=== PATIENT | female | born 1980 | race Caucasian/White ===

== ENCOUNTER → 2016-04-19 | Outpatient (CLI) | payer OTHER | LOC: FIMAGING 08:51 | PROVIDERS: ATTEND Internal Medicine Hematology & Oncology | DX: Z12.31 Encounter for screening mammogram for malignant neoplasm of breast (principal); Z80.3 Family history of malignant neoplasm of breast | CPT/HCPCS: G0202 ==

== ENCOUNTER → 2016-09-13 | Outpatient (CLI) | payer OTHER ==
[~2016-09-13] MED LIST: GADOBUTROL 10 ML VIAL IVP ONE
== END ==
LOC: FIMAGING 13:55
PROVIDERS: ATTEND Internal Medicine Hematology & Oncology
DX: N63 Unspecified lump in breast (principal); Z15.01 Genetic susceptibility to malignant neoplasm of breast; Z80.3 Family history of malignant neoplasm of breast
CPT/HCPCS: 0159T; A9585; C8908

== ENCOUNTER → 2016-09-16 | Outpatient (CLI) | payer OTHER | LOC: FIMAGING 14:52 | PROVIDERS: ATTEND Internal Medicine Hematology & Oncology | DX: N63 Unspecified lump in breast (principal) ==

== ENCOUNTER 2016-11-03 08:05 | Outpatient (CLI) | payer OTHER ==
[2016-11-03] MEDS ORDERED: MIDAZOLAM 2 MG/2 ML VIAL ONE (08:22)
[2016-11-03] MEDS ORDERED: fentaNYL 100 MCG/2 ML INJ ONE (08:22)
[2016-11-03] MEDS ORDERED: GADOBUTROL 10 ML VIAL IVP ONE (08:26)
[2016-11-03] MEDS ORDERED: LIDOCAINE 1% 5 ML SDV ONE (08:27)
[2016-11-03] MEDS ORDERED: BUPIVACAINE 0.5% 30 ML SDV ONE (08:28)
[2016-11-03] MEDS ORDERED: NA BICARBONATE 50 MEQ/50 ML VIAL ONE (08:28)
== END 2016-11-03 11:00 | disposition home or self-care (01) ==
LOC: FIMAGING 08:05
PROVIDERS: ATTEND Internal Medicine Hematology & Oncology
PROC: 0HBU3ZX Excision of Left Breast, Percutaneous Approach, Diagnostic (ICD-10-PCS; principal; 2016-11-03)
DX: N60.12 Diffuse cystic mastopathy of left breast (principal); Z15.01 Genetic susceptibility to malignant neoplasm of breast
CPT/HCPCS: A9585; G0206; J2250; J3010

== ENCOUNTER 2017-11-24 19:33 | Emergency (ER) | payer OTHER ==
[2017-11-24] MEDS ORDERED: NS 1,000 ML IV ONE (19:56)
[2017-11-24] MEDS ORDERED: DEXAMETHASONE 10 MG/ML VIAL IVP ONE (19:56)
[2017-11-24] MEDS ORDERED: KETOROLAC 30 MG/1 ML SDV IVP ONE (19:56)
[2017-11-24] MEDS ORDERED: METOCLOPRAMIDE 10 MG/2 ML VIAL IVP ONE ×2 (19:57→20:52)
--- NOTE | 2017-11-24 20:05 | EDPHY ---
H & P Stated Complaint: Pt. states WOLF since Monday, vomiting today aprox 1600 Time Seen by Provider: 11/24/17 19:39 HPI/ROS: This patient describes a migraine headache that started early this morning. She had had a headache that started 5 days ago and lasted to 3 days and finally resolved for 24 hr or more prior to this recurrence of migraine. She tried Zomig at 4:00 p.m. But started vomiting thereafter. She now reports bilateral frontal throbbing headache similar to prior migraines, 8/10 intensity. Headache worsens with movement. No other exacerbating factors. She has associated photophobia as well as aura consisting of increased sensitivity to sound in smell. Her father brought her in by private vehicle for evaluation and treatment. ROS: Constitutional: No recent fevers. No fatigue. HEENT: No URI symptoms Pulmonary: No shortness of breath or cough Cardiovascular: No chest pain heart palpitations. No lightheadedness. GI: No abdominal pain. Except for minimal crampy discomfort to 3/10 left lower quadrant that started this afternoon. No hematemesis. Normal bowel movements. : No dysuria or other complaints. Integumentary: No skin rash Neuro: No focal numbness tingling weakness. No confusion. No recent head injuries. 10 point review of symptoms is performed and otherwise negative with exception of pertinent positives and negatives listed in HPI and ROS Source: Patient Exam Limitations: No limitations - Personal History Current Tetanus Diphtheria and Acellular Pertussis (TDAP): Unsure Tetanus Vaccine Date: WITHIN LAST 10 YEARS - Medical/Surgical History Hx Asthma: No Hx Chronic Respiratory Disease: No Hx Diabetes: No Hx Cardiac Disease: No Hx Renal Disease: No Hx Cirrhosis: No Hx Alcoholism: No Hx HIV/AIDS: No Hx Splenectomy or Spleen Trauma: No Other PMH: MEd hx-depression, migraines. Surg-BSO,mastectomy - Family History Significant Family History: No pertinent family hx - Social History Smoking Status: Never smoked Alcohol Use: Occasionally Drug Use: None - Physical Exam Exam: Physical exam: Vital signs are normal General: Patient is in no acute distress. HEENT: Is no external evidence of trauma on exam. Eyes: Pupils are equal and reactive to light. Extraocular motions are intact. Optic fundi: Clear with no papilledema or hemorrhage. Nose atraumatic. Ears: Clear bilaterally with no hemotympanum. Oropharynx: No dental trauma or malocclusion. No intraoral lacerations. Eyes: Pupils are equal and reactive to light. Extraocular motions are intact. Optic fundi: Clear with no papilledema or hemorrhage. Lungs: Clear to auscultation bilaterally Neck: Supple no meningismus. Cardiac: Regular rate and rhythm no murmur gallop or rub. Abdomen: Soft nontender no organomegaly Neuro: GCS of 15. Cranial nerves II through XII intact. Cerebellar exam is normal as judged by symmetric rapid hand movements bilaterally. No pronator drift. No sensory or motor deficits are appreciated. Initial differential diagnosis: Migraine, tension headache, [employer] lesion, intracranial bleed Constitutional: Initial Vital Signs Temperature (C) 36.5 C 11/24/17 19:39 Heart Rate 103 H 11/24/17 19:39 Respiratory Rate 16 11/24/17 19:39 Blood Pressure 134/93 H 11/24/17 19:39 O2 Sat (%) 98 11/24/17 19:39 O2 Delivery Mode Room Air Allergies/Adverse Reactions: No Known Allergies Allergy (Verified 11/24/17 19:38) Home Medications: Medication Instructions Recorded Citalopram [CeleXA 20 MG] 40 mg PO DAILY 05/10/11 Spironolactone 100 mg PO DAILY 10/19/14 Estrogen Patch 11/24/17 Progesterone 11/24/17 ZOLMitriptan [Zomig Zmt] 11/24/17 Medical Decision Making ED Course/Re-evaluation: IV normal saline bolus Reglan 5 mg, Benadryl 25 mg, Decadron 10 mg, and Toradol 15 IV with relief down to 4/10 headache but she still did not feel that she can go to sleep with this She is then given additional 15 mg of Toradol IV and additional 5 mg of Reglan IV with relief down to 1 or 2/10 Discussion: Patient presents with findings consistent with migraine headache, vomiting dehydration relieved with treatment. No red flag findings that would suggest [employer] infection, intracranial bleed or or other red flag findings. However the patient understands need to return emergency department should she develop significant recurrence of symptoms despite treatment plan of Zofran, Zomig ibuprofen at home for any recurrence. She will follow up with primary care physician. - Data Points Medications Given: Discontinued Medications Dexamethasone (Decadron Injection) 10 mg IVP EDNOW ONE Stop: 11/24/17 19:57 Last Admin: 11/24/17 20:19 Dose: 10 mg Diphenhydramine HCl (Benadryl Injection) 25 mg IVP EDNOW ONE Stop: 11/24/17 19:57 Last Admin: 11/24/17 20:14 Dose: 25 mg Sodium Chloride (Ns) 1,000 mls @ 0 mls/hr IV ONCE ONE; Wide Open PRN Reason: Protocol Stop: 11/24/17 19:57 Last Admin: 11/24/17 20:13 Dose: 1,000 mls Ketorolac Tromethamine (Toradol) 15 mg IVP EDNOW ONE Stop: 11/24/17 19:57 Last Admin: 11/24/17 20:16 Dose: 15 mg Ketorolac Tromethamine (Toradol) 15 mg IVP ONCE ONE Stop: 11/24/17 20:50 Last Admin: 11/24/17 20:59 Dose: 15 mg Metoclopramide HCl (Reglan Injection) 5 mg IVP EDNOW ONE Stop: 11/24/17 19:58 Last Admin: 11/24/17 20:20 Dose: 5 mg Metoclopramide HCl (Reglan Injection) 5 mg IVP EDNOW ONE Stop: 11/24/17 20:53 Last Admin: 11/24/17 21:05 Dose: 5 mg Departure - Departure Disposition: Home, Routine, Self-Care Clinical Impression: Migraine headache with aura Qualifiers: Status migrainosus presence: without status migrainosus Intractability: not intractable Qualified Code(s): G43.109 - Migraine with aura, not intractable, without status migrainosus Vomiting Qualifiers: Vomiting type: unspecified Vomiting Intractability: non-intractable Nausea presence: with nausea Qualified Code(s): R11.2 - Nausea with vomiting, unspecified Condition: Good Instructions: Migraine Headache (ED), Acute Nausea and Vomiting (ED) Additional Instructions: Diagnosis:. Migraine 2. Vomiting Plan: Drink plenty fluids Zofran for nausea if needed Zomig and ibuprofen for any recurrent headaches Follow up with primary care physician for any ongoing symptoms Take 1/2 your normal celexa dose tonight, then back to 40 mg tomorrow. Return for any significant worsening despite treatment Referrals: NELL ARANDA [Primary Care Provider] - As per Instructions
[2017-11-24] MEDS ORDERED: KETOROLAC 15 MG/1 ML SDV IVP ONE (20:49)
[2017-11-24 21:07] VITALS: BP 110/71
== END 2017-11-24 21:19 | disposition home or self-care (01) ==
LOC: CED 19:33
DX: G43.109 Migraine with aura, not intractable, without status migrainosus (principal); E86.9 Volume depletion, unspecified
CPT/HCPCS: 96374; J1100; J1200; J1885; J2765